=== PATIENT | male | born 1955 | race Hispanic/Latino ===

== ENCOUNTER → 2021-07-11 | Outpatient (CLI) | payer MEDICARE ==
[~2021-07-11] MED LIST: ASPI-556 PO; ATOR40TA71 PO; CANA300T PO; GLYB1TAB32 PO; INSLAN SQ; METO50TA18 PO; OMEP20TA25 PO; PRAS10TA6 PO; TRAZ-187 PO
== END | disposition home or self-care (01) ==
LOC: SHCH 10:52
PROVIDERS: ATTEND Internal Medicine Cardiovascular Disease
DX: I11.9 Hypertensive heart disease without heart failure (principal); I35.1 Nonrheumatic aortic (valve) insufficiency; I25.10 Atherosclerotic heart disease of native coronary artery without angina pectoris; E78.5 Hyperlipidemia, unspecified; E66.9 Obesity, unspecified; Z83.3 Family history of diabetes mellitus; Z95.1 Presence of aortocoronary bypass graft; Z95.5 Presence of coronary angioplasty implant and graft
CPT/HCPCS: 93306

== ENCOUNTER → 2021-07-13 | Outpatient (CLI) | payer MEDICARE ==
[~2021-07-13] VITALS: Ht 172.7 cm; Wt 101.6 kg
[~2021-07-13] MED LIST changes: +OMEP20TA20 PO; -OMEP20TA25 PO; +REGADENOSON 0.4 MG/5 ML PF SYG IVP SCH
== END | disposition home or self-care (01) ==
LOC: SHCH 08:45
PROVIDERS: ATTEND Internal Medicine Cardiovascular Disease
DX: I10 Essential (primary) hypertension (principal); R06.02 Shortness of breath; R07.89 Other chest pain; Z95.1 Presence of aortocoronary bypass graft
CPT/HCPCS: 78452; 93017; 96374; A9500 ×2; J2785

== ENCOUNTER 2021-10-08 07:42 | Day surgery (SDC) | payer MEDICARE ==
[2021-10-04 08:38] LABS: BASOPHILS % (AUTO) 0.3 % (0.0-5.0); EOSINOPHILS % (AUTO) 2.8 % (0.0-8.0); LYMPHOCYTES % (AUTO) 21.4 % (21.0-51.0); MEAN CORPUSCULAR HEMOGLOBIN 27.5 pg (27.0-33.0); MEAN CORPUSCULAR HGB CONC 32.4 g/dL (32.0-36.0); MONOCYTES % (AUTO) 7.2 % (3.0-13.0); NEUTROPHILS % (AUTO) 67.8 % (40.0-77.0); PLATELET COUNT (AUTO) 211 K/uL (130-400); RED BLOOD CELL COUNT(AUTO) 4.47 MIL/uL (4.50-6.20); RED CELL DISTRIBUTION WIDTH 14.5 % (11.0-15.5); WHITE BLOOD COUNT (AUTO) 7.5 K/uL (4.8-10.8)
[2021-10-04 08:42] LABS: APPEARANCE,URINE CLEAR (CLEAR); BILIRUBIN,URINE NEGATIVE (NEGATIVE); COLOR,URINE YELLOW (YELLOW); GLUCOSE, URINE (UA) NEGATIVE (NEGATIVE); KETONES,URINE 5 mg/dL (NEGATIVE); LEUKOCYTE ESTERASE ,URINE NEGATIVE (NEGATIVE); NITRATE,URINE NEGATIVE (NEGATIVE); OCCULT BLOOD,URINE NEGATIVE (NEGATIVE); PH,URINE 6.5 (5.0-8.0); PROTEIN,URINE 100 mg/dL (NEGATIVE)
[2021-10-04 08:59] LABS: CREATININE 1.2 mg/dL (0.5-1.5); POTASSIUM 4.3 mmol/L (3.5-5.1); PROTHROMBIN TIME 10.9 SEC (9.6-11.6)
[2021-10-04 09:00] LABS: PARTIAL THROMBOPLASTIN TIME 30.1 SEC (26.3-35.5)
[2021-10-04 09:12] LABS: BACTERIA,URINE None Seen /HPF (None Seen); RBC,URINE 0-1 /HPF (0-1); SQUAMOUS EPITHELIAL CELL,UR 0-2 /HPF (0-2); WBC,URINE 0-1 /HPF (0-1)
[2021-10-04 09:16] LABS: B-TYPE NATRIURETIC PEPTIDE 58 pg/mL (0-100)
[2021-10-05 11:32] VITALS: BP 143/73
[~2021-10-08] VITALS: Ht 170.2 cm; Wt 100.1 kg
[2021-10-08] VITALS (11 sets, daily range): BP systolic 117–152; BP diastolic 74–87
[~2021-10-08 07:42] MED LIST changes: +AMLO2.5T4 PO; -CANA300T PO; +LOSA100T58 PO; -METO50TA18 PO; -REGADENOSON 0.4 MG/5 ML PF SYG IVP SCH; +SITA100T12 PO; +TAMS-1 PO; -TRAZ-187 PO
[2021-10-08] MEDS ORDERED: 0.9%NACL 1000ML 1,000 ML IV ONE (08:06)
[2021-10-08] MEDS ORDERED: IOHEXOL 350 MG/ML 100ML INFUS..BTL IV ONE (11:23)
[2021-10-08] MEDS ORDERED: NITROGLYCERIN 50MG VIAL ONE (11:23)
[2021-10-08] MEDS ORDERED: SODIUM BICARB 50MEQ 50ML VIAL 50 ML ONE (11:23)
[2021-10-08] MEDS ORDERED: HEPARIN 10,000 UNIT/10ML (1,000 UNIT/ML) VIAL ONE ×2 (11:23→12:02)
[2021-10-08] MEDS ORDERED: MIDAZOLAM HCL 1 MG/ML 2ML VIAL ONE ×2 (11:23→12:41)
[2021-10-08] MEDS ORDERED: LIDOCAINE HCL 400MG/20ML VIAL ONE ×2 (11:24→11:35)
[2021-10-08] MEDS ORDERED: MEPERIDINE-PF 25 MG/ML SYG ONE ×2 (11:25→12:40)
[2021-10-08] MEDS ORDERED: GLUCAGON 1MG KIT 1 MG ML IM PRN (13:30)
[2021-10-08] MEDS ORDERED: 0.9%NACL 1000ML 1,000 ML IV SCH (13:30)
[2021-10-08] MEDS ORDERED: DEXTROSE 50%-WATER 50 ML DISP.SYRIN IV PRN (13:30)
[2021-10-08] MEDS ORDERED: INSULIN HUMULIN R 100 UNIT/ML 3ML SQ SCH (16:30)
== END 2021-10-08 19:45 | disposition home or self-care (01) ==
LOC: DAH 07:42
PROVIDERS: ATTEND Internal Medicine Cardiovascular Disease
DX: I25.119 Atherosclerotic heart disease of native coronary artery with unspecified angina pectoris (principal); T82.855A Stenosis of coronary artery stent, initial encounter; K21.9 Gastro-esophageal reflux disease without esophagitis; E11.22 Type 2 diabetes mellitus with diabetic chronic kidney disease; I12.9 Hypertensive chronic kidney disease with stage 1 through stage 4 chronic kidney disease, or unspecified chronic kidney disease; N18.9 Chronic kidney disease, unspecified; Z90.49 Acquired absence of other specified parts of digestive tract; Z95.5 Presence of coronary angioplasty implant and graft; Z98.890 Other specified postprocedural states; Z82.49 Family history of ischemic heart disease and other diseases of the circulatory system; Z79.899 Other long term (current) drug therapy; Z79.01 Long term (current) use of anticoagulants; Y83.8 Other surgical procedures as the cause of abnormal reaction of the patient, or of later complication, without mention of misadventure at the time of the procedure
CPT/HCPCS: 36415 ×2; 71045; 80048; 81001; 82948; 83880; 85025; 85347 ×2; 85610; 85730; 93005; 93459; A4215; A4216; A4221; A4222; A4223 ×3; A4606; A4663; C1725 ×2; C1760; C1769 ×2; C1874 ×3; C1887 ×4; C1894; C9600 ×2; C9601; J1644 ×4; J2175 ×2; J2250 ×2; J3490 ×4; J7030; Q9965 ×2; Q9967; 99156; 99157

== ENCOUNTER 2021-12-10 07:36 | Day surgery (SDC) | payer MEDICARE ==
[2021-12-06 09:08] LABS: BASOPHILS % (AUTO) 0.3 % (0.0-5.0); EOSINOPHILS % (AUTO) 2.9 % (0.0-8.0); HEMATOCRIT 36.2 % (42-54); LYMPHOCYTES % (AUTO) 20.2 % (21.0-51.0); MEAN CORPUSCULAR HGB CONC 32.9 g/dL (32.0-36.0); MEAN CORPUSCULAR VOLUME 85.2 fL (79-99); MONOCYTES % (AUTO) 8.4 % (3.0-13.0); NEUTROPHILS % (AUTO) 67.8 % (40.0-77.0); PLATELET COUNT (AUTO) 220 K/uL (130-400); RED BLOOD CELL COUNT(AUTO) 4.25 MIL/uL (4.50-6.20); RED CELL DISTRIBUTION WIDTH 14.1 % (11.0-15.5); WHITE BLOOD COUNT (AUTO) 7.6 K/uL (4.8-10.8)
[2021-12-06 09:17] LABS: APPEARANCE,URINE CLEAR (CLEAR); BILIRUBIN,URINE NEGATIVE (NEGATIVE); COLOR,URINE YELLOW (YELLOW); GLUCOSE, URINE (UA) NEGATIVE (NEGATIVE); KETONES,URINE NEGATIVE (NEGATIVE); LEUKOCYTE ESTERASE ,URINE NEGATIVE (NEGATIVE); NITRATE,URINE NEGATIVE (NEGATIVE); OCCULT BLOOD,URINE NEGATIVE (NEGATIVE); PROTEIN,URINE 30 mg/dL (NEGATIVE)
[2021-12-06 09:18] LABS: CREATININE 1.3 mg/dL (0.5-1.5); POTASSIUM 4.3 mmol/L (3.5-5.1)
[2021-12-06 09:22] LABS: INR 0.97 (0.85-1.15); PROTHROMBIN TIME 10.6 SEC (9.6-11.6)
[2021-12-06 09:23] LABS: PARTIAL THROMBOPLASTIN TIME 29.7 SEC (26.3-35.5)
[2021-12-06 09:25] LABS: B-TYPE NATRIURETIC PEPTIDE 59 pg/mL (0-100)
[2021-12-06 09:41] LABS: BACTERIA,URINE Rare /HPF (None Seen); RBC,URINE 0-1 /HPF (0-1); SQUAMOUS EPITHELIAL CELL,UR 0-2 /HPF (0-2); WBC,URINE 0-1 /HPF (0-1)
[2021-12-07 11:07] VITALS: BP 143/76
[2021-12-10] VITALS (10 sets, daily range): BP systolic 101–134; BP diastolic 61–83
[~2021-12-10] VITALS: Ht 170.2 cm; Wt 100.2 kg
[~2021-12-10 07:36] MED LIST changes: +GLYB-173 PO; -GLYB1TAB32 PO; +HYDR25TA PO; +METO-408 PO
[2021-12-10] MEDS ORDERED: 0.9%NACL 1000ML 1,000 ML IV ONE (09:51)
[2021-12-10] MEDS ORDERED: MEPERIDINE-PF 25 MG/ML SYG ONE ×3 (14:59→15:28)
[2021-12-10] MEDS ORDERED: MIDAZOLAM HCL 1 MG/ML 2ML VIAL ONE ×3 (14:59→15:28)
[2021-12-10] MEDS ORDERED: LIDOCAINE HCL 1% 20 ML VIAL ONE (15:00)
[2021-12-10] MEDS ORDERED: HEPARIN 10,000 UNIT/10ML (1,000 UNIT/ML) VIAL ONE (15:00)
[2021-12-10] MEDS ORDERED: SODIUM BICARB 50MEQ 50ML VIAL 50 ML ONE (15:00)
[2021-12-10] MEDS ORDERED: IOHEXOL 350 MG/ML 100ML INFUS..BTL IV ONE (15:01)
[2021-12-10] MEDS ORDERED: NITROGLYCERIN 50MG VIAL ONE (15:01)
[2021-12-10] MEDS ORDERED: NITROGLYCERIN 4.1 GM SPRAY TL ONE (16:00)
[2021-12-10] MEDS ORDERED: INSULIN HUMULIN R 100 UNIT/ML 3ML SQ SCH (16:30)
[2021-12-10] MEDS ORDERED: GLUCAGON 1MG KIT 1 MG ML IM PRN (16:30)
[2021-12-10] MEDS ORDERED: DEXTROSE 50%-WATER 50 ML DISP.SYRIN IV PRN (16:30)
[2021-12-10] MEDS ORDERED: 0.9%NACL 1000ML 1,000 ML IV SCH (16:30)
== END 2021-12-10 20:15 | disposition home or self-care (01) ==
LOC: DAH 07:36
PROVIDERS: ATTEND Internal Medicine Cardiovascular Disease
DX: I25.119 Atherosclerotic heart disease of native coronary artery with unspecified angina pectoris (principal); I25.82 Chronic total occlusion of coronary artery; T82.855A Stenosis of coronary artery stent, initial encounter; E11.22 Type 2 diabetes mellitus with diabetic chronic kidney disease; I12.9 Hypertensive chronic kidney disease with stage 1 through stage 4 chronic kidney disease, or unspecified chronic kidney disease; N18.9 Chronic kidney disease, unspecified; Z79.82 Long term (current) use of aspirin; Z79.01 Long term (current) use of anticoagulants; Z79.84 Long term (current) use of oral hypoglycemic drugs; Z79.899 Other long term (current) drug therapy; Z95.5 Presence of coronary angioplasty implant and graft; Z82.49 Family history of ischemic heart disease and other diseases of the circulatory system; Y83.8 Other surgical procedures as the cause of abnormal reaction of the patient, or of later complication, without mention of misadventure at the time of the procedure
CPT/HCPCS: 80048; 83880; 85025; 85610; 85730; 81001; 36415 ×2; 71045; 93005; 85347; 82948 ×2; 93454; C9600; C1769; C1887; C1894; C1760; C1874 ×2; J7030; J3490 ×2; J1644 ×2; J2250 ×2; J2175 ×2; Q9967; A4215; A4222; A4221; A4663; A4216; A4606; Q9965; A4223 ×3; 99156; 99157